=== PATIENT | female | born 1960 | race Hispanic/Latino ===

== ENCOUNTER 2016-11-03 08:36 | Emergency (ER) | payer MEDICAID ==
[2016-11-03] MEDS ORDERED: Sodium Chloride 0.9% 1,000 ML IV ONE ×2 (08:56→12:24)
[2016-11-03 09:10] VITALS: O2SAT 99
--- NOTE | 2016-11-03 09:25 | C.PDOC ---
History Of Present Illness 56-year-old female, presents to the emergency department with complaints of abdominal pain. Patient states she has been experiencing right-sided abdominal pain, that is associated with nausea and non-bilious/non-bloody vomiting x3 days. Pain is intermittent in nature, and non-radiating. Yesterday, patient developed non-bloody diarrhea and a subjective fever, resulting in her coming to the ED for evaluation. Patient reports history of Hepatitis C for which she took 3 month treatment of ribavarin and has to follow up with GI for results. Time Seen by Provider: 11/03/16 08:51 Chief Complaint (Nursing): GI Problem History Per: Patient History/Exam Limitations: no limitations Onset/Duration Of Symptoms: Days (3) Current Symptoms Are (Timing): Still Present Severity: Moderate Past Medical History Reviewed: Historical Data, Nursing Documentation, Vital Signs Vital Signs: Last Vital Signs Temp 98.9 F 11/03/16 12:50 Pulse 83 11/03/16 12:50 Resp 18 11/03/16 12:50 BP 152/89 H 11/03/16 12:50 Pulse Ox 99 11/03/16 13:29 - Medical History PMH: [place]'s Disease, Hepatitis (C), HTN, Rheumatoid Arthritis Family History: States: No Known Family Hx - Social History Hx Alcohol Use: Yes Hx Substance Use: No - Immunization History Hx Tetanus Toxoid Vaccination: No Hx Influenza Vaccination: No Review Of Systems Except As Marked, All Systems Reviewed And Found Negative. Constitutional: Positive for: Fever. Negative for: Chills Cardiovascular: Negative for: Chest Pain Respiratory: Negative for: Shortness of Breath Gastrointestinal: Positive for: Nausea, Vomiting, Abdominal Pain, Diarrhea Genitourinary: Negative for: Dysuria, Vaginal Discharge, Vaginal Bleeding Musculoskeletal: Negative for: Back Pain Neurological: Negative for: Weakness, Numbness, Headache, Dizziness Physical Exam - Physical Exam Appears: Non-toxic, No Acute Distress (Uncomfortable) Skin: Warm, Dry, No Rash Head: Atraumatic, Normacephalic Eye(s): bilateral: Normal Inspection Nose: Normal Oral Mucosa: Moist Lips: Normal Appearing Neck: Normal ROM Chest: Symmetrical Cardiovascular: Rhythm Regular, No Murmur Respiratory: Normal Breath Sounds, No Accessory Muscle Use Gastrointestinal/Abdominal: Soft, Tenderness (RUQ and RLQ), No Distention, No Guarding, No Hernia Back: Normal Inspection, No CVA Tenderness Extremity: Normal ROM Neurological/Psych: Oriented x3, Normal Speech ED Course And Treatment - Laboratory Results Result Diagrams: 11/03/16 09:25 11/03/16 09:25 Lab Interpretation: Abnormal O2 Sat by Pulse Oximetry: 99 Pulse Ox Interpretation: Normal - CT Scan/US A/P Other Rad Studies (CT/US): Read By Radiologist (DR Márquez), Radiology Report Reviewed CT/US Interpretation: DR. Márquez, Christy Nguyen MD. Approver2 : Report Date : 12:31:57. My Comment : . PROCEDURE: CT Abdomen and Pelvis with contrast. HISTORY: RLQ abd pain. COMPARISON: None available. TECHNIQUE: Contrast dose: 100 mL Omnipaque 350. Radiation dose: Total exam DLP = 545.48 mGy-cm. This CT exam was performed using one or more of the following dose reduction techniques: Automated exposure control, adjustment of the mA and/or kV according to patient size, and/or use of iterative reconstruction technique. FINDINGS: LOWER THORAX: No visible consolidation, pleural effusion, or pneumothorax. Tiny hiatal hernia/distal esophageal wall thickening. LIVER: Mild nodular hepatic contour. Hypoattenuation of the liver compatible with hepatic steatosis. GALLBLADDER AND BILE DUCTS: Unremarkable. PANCREAS: Unremarkable. SPLEEN: Splenomegaly. ADRENALS: Unremarkable. KIDNEYS AND URETERS: The kidneys enhance symmetrically. No hydronephrosis or obstructing calculus identified. VASCULATURE: Evidence of splenorenal shunt. No aortic aneurysm. BOWEL: Stomach is nondistended. Lack of oral contrast limits evaluation for bowel pathology. Bowel loops appear within normal limits of caliber without evidence of obstruction. APPENDIX: The appendix appears within normal limits of caliber. No secondary signs of acute appendicitis. PERITONEUM: No significant free fluid. No definite free air. LYMPH NODES: No bulky adenopathy identified. BLADDER: Under distention of the urinary bladder appears otherwise grossly unremarkable. REPRODUCTIVE: The uterus is present. BONES: No acute osseous abnormality is detected. OTHER FINDINGS: None. IMPRESSION: Hepatic steatosis. Nodular hepatic contour consistent with cirrhosis. Splenomegaly. Evidence of splenorenal shunt. Correlate clinically for portal venous hypertension. The appendix appears within normal limits of caliber without secondary signs of acute appendicitis. Additional incidental findings as above. Medical Decision Making Medical Decision Making: Impression 56y/o F c.o abdominal pain Plan: * CT Abd/Pel * CMP, Lipase * CBC * Pepcid, IVF, Toradol, Zofran * Urinalysis * Reassess and Disposition Progress: [facility] reviewed patient has multiple Rx of Ativan most recent 09/2016. Labs show mild leukocytosis with no bands or shift, CMP shows slight hypokalemia and elevated LFT and glucose. Patient complained of bodyaches and headache, Tylenol was ordered. 1235 CT reviewed showing no acute appendicitis or surgical pathology. Findings consistent with hepatitis and liver cirrhosis. 1245 Patient reevaluated and reports still feeling nausea and pain mildly improved. Of note patient has history of narcotic abuse and had refused narcotics initially. Patient had tolerated devin barry soda in ED. Abdomen remains soft without guarding or rebound. Vital signs are stable. Patient is stable for discharge and will be given Rx for Zofran. Recommend oral fluids for hydration and clear liquids with progression as tolerated. Disposition Counseled Patient/Family Regarding: Need For Followup, Rx Given - Disposition Referrals: [facility] [Outside] [facility] [Outside] Disposition: HOME/ ROUTINE Disposition Time: 13:26 Condition: STABLE Additional Instructions: Your Labs show chronic liver disease. CT abdomen consistent with liver disease. Drink fluids to prevent dehydration. Take Zofran as prescribed for nausea/ vomiting and Tramadol for any pain. Try low-fat diet with increase in fluids such as sport drink, gelatin. Try soup, rice, bread, crackers, cereal, and bananas to help with diarrhea. Avoid high sugar foods or drinks (soda and juice) , fatty foods Prescriptions: Ondansetron ODT [Zofran ODT] 1 odt PO BID PRN #10 odt PRN Reason: Nausea/Vomiting traMADol [Ultram] 50 mg PO Q8 #14 tab Instructions: Gastroenteritis (DC) - POA Present On Arrival: None - Clinical Impression Clinical Impression: Liver disease, Gastroenteritis - Scribe Statement The provider has reviewed the documentation as recorded by the Kirstyibnico Maritnez All medical record entries made by the Kirstyibnico were at my direction and personally dictated by me. I have reviewed the chart and agree that the record accurately reflects my personal performance of the history, physical exam, medical decision making, and the department course for this patient. I have also personally directed, reviewed, and agree with the discharge instructions and disposition.
[2016-11-03 09:32] LABS: BASO # 0.1 K/uL (0.0-0.2); BASO % 0.9 % (0.0-2.0); HEMATOCRIT 49.9 % (34.0-47.0); LYMPH # 0.7 K/uL (1.0-4.3); LYMPH % 6.1 % (20.0-40.0); MEAN CELL VOLUME 91.3 fL (81.0-99.0); MEAN CORPUSCULAR HEMOGLOBIN 30.3 pg (27.0-31.0); MEAN CORPUSCULAR HGB CONC 33.2 g/dL (33.0-37.0); MEAN PLATELET VOLUME 9.2 fL (7.2-11.7); MONO # 0.3 K/uL (0.0-0.8); MONO % 2.4 % (0.0-10.0); NRBC % 0.1 % (0.0-2.0); PLATELET COUNT 169 K/uL (130-400); RED CELL DISTRIBUTION WIDTH 13.6 % (11.5-14.5); WHITE BLOOD COUNT 11.6 K/uL (4.8-10.8)
[2016-11-03 10:04] LABS: CHLORIDE 97 mmol/L (98-107); POTASSIUM 3.4 mmol/L (3.6-5.2); SODIUM 138 mmol/L (132-148)
[2016-11-03 10:06] LABS: AST/SGOT 142 U/L (14-36); BILIRUBIN,TOTAL 1.6 mg/dL (0.2-1.3); CARBON DIOXIDE 22 mmol/L (22-30); GFR AFRICAN-AMERICAN > 60; NEUTROPHIL 94 % (50-75); REACTIVE LYMPHOCYTES 1 % (0-0); TOTAL CELLS COUNTED 100
[2016-11-03 10:07] LABS: ALB/GLOB RATIO 1.1 (1.0-2.1); ALKALINE PHOSPHATASE 204 U/L (38-126); ALT/SGPT 194 U/L (9-52); BLOOD UREA NITROGEN 25 mg/dL (7-17); CALCIUM 10.6 mg/dl (8.6-10.4); GLUCOSE,RANDOM 275 mg/dL (65-105)
[2016-11-03 10:29] LABS: RBC URINE 7 /hpf (0-3); URINE BACTERIA RARE (<OCC); URINE BILIRUBIN NEGATIVE (NEGATIVE); URINE BLOOD 2+ (NEGATIVE); URINE COLOR Yellow (YELLOW); URINE GLUCOSE (UA) 1+ mg/dL (Normal); URINE HYALINE CAST 0-2 /lpf (0-2); URINE KETONE NEGATIVE (NEGATIVE); URINE LEUKOCYTE ESTERASE NEG Leu/uL (Negative); URINE PROTEIN 1+ mg/dL (NEGATIVE); URINE UROBILINOGEN NORMAL mg/dL (0.2-1.0); WBC URINE 3 /hpf (0-5)
[2016-11-03] MEDS ORDERED: Iohexol 350mg/ml 100 ML ONE (11:54)
--- NOTE | 2016-11-03 12:34 | CT ---
PROCEDURE: CT Abdomen and Pelvis with contrast HISTORY: RLQ abd pain COMPARISON: None available. TECHNIQUE: Contrast dose: 100 mL Omnipaque 350 Radiation dose: Total exam DLP = 545.48 mGy-cm. This CT exam was performed using one or more of the following dose reduction techniques: Automated exposure control, adjustment of the mA and/or kV according to patient size, and/or use of iterative reconstruction technique. FINDINGS: LOWER THORAX: No visible consolidation, pleural effusion, or pneumothorax. Tiny hiatal hernia/distal esophageal wall thickening. LIVER: Mild nodular hepatic contour. Hypoattenuation of the liver compatible with hepatic steatosis. GALLBLADDER AND BILE DUCTS: Unremarkable. PANCREAS: Unremarkable. SPLEEN: Splenomegaly. ADRENALS: Unremarkable. KIDNEYS AND URETERS: The kidneys enhance symmetrically. No hydronephrosis or obstructing calculus identified. VASCULATURE: Evidence of splenorenal shunt. No aortic aneurysm. BOWEL: Stomach is nondistended. Lack of oral contrast limits evaluation for bowel pathology. Bowel loops appear within normal limits of caliber without evidence of obstruction. APPENDIX: The appendix appears within normal limits of caliber. No secondary signs of acute appendicitis. PERITONEUM: No significant free fluid. No definite free air. LYMPH NODES: No bulky adenopathy identified. BLADDER: Under distention of the urinary bladder appears otherwise grossly unremarkable. REPRODUCTIVE: The uterus is present. BONES: No acute osseous abnormality is detected. OTHER FINDINGS: None. IMPRESSION: Hepatic steatosis. Nodular hepatic contour consistent with cirrhosis. Splenomegaly. Evidence of splenorenal shunt. Correlate clinically for portal venous hypertension. The appendix appears within normal limits of caliber without secondary signs of acute appendicitis. Additional incidental findings as above.
[2016-11-03] MEDS ORDERED: Sodium Chloride 0.9% 1,000 ML ONE (12:42)
[2016-11-03 12:54] VITALS: BP 152/89; PULSE 83; RESP 18; TEMP 98.9
== END 2016-11-03 13:42 | disposition home or self-care (01) ==
LOC: C.ER 08:36
DX: K76.9 Liver disease, unspecified (principal); K52.9 Noninfective gastroenteritis and colitis, unspecified
CPT/HCPCS: 74177; 80053; 81001; 83690; 85025; 96361; 96365; 96375; 99285; J1885; J2405; J2765; J7040; Q9967

== ENCOUNTER 2017-03-31 23:39 | Emergency (ER) | payer MEDICAID ==
[2017-03-31 23:53] VITALS: TEMP 98; O2SAT 98
--- NOTE | 2017-04-01 00:05 | C.PDOC ---
- HPI Time Seen by Provider: 04/01/17 00:04 Chief Complaint (Nursing): Trauma Past Medical History Vital Signs: Last Vital Signs Temp 98 F 03/31/17 23:47 Pulse 88 03/31/17 23:47 Resp 15 03/31/17 23:47 BP 136/86 03/31/17 23:47 Pulse Ox 98 03/31/17 23:47 - Medical History PMH: [place]'s Disease, Hepatitis (C), HTN, Rheumatoid Arthritis - Social History Hx Alcohol Use: Yes Hx Substance Use: No - Immunization History Hx Tetanus Toxoid Vaccination: No Hx Influenza Vaccination: No ED Course And Treatment O2 Sat by Pulse Oximetry: 98 Disposition Counseled Patient/Family Regarding: Studies Performed, Diagnosis - Disposition Disposition Time: 00:05
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
--- NOTE | 2017-04-01 01:00 | CT ---
EXAM: CT Orbits Without Intravenous Contrast EXAM DATE/TIME: Exam ordered 04/01/2017 12:17 AM CLINICAL HISTORY: 56 years old, female; Injury or trauma; Fall; Initial encounter; Abrasion; Forehead and nose and orbit/periorbital and lip/oral cavity; Right; Both upper and lower TECHNIQUE: Axial computed tomography images of the orbits without intravenous contrast. All CT scans at this facility use one or more dose reduction techniques, viz.: automated exposure control; ma/kV adjustment per patient size (including targeted exams where dose is matched to indication; i.e. head); or iterative reconstruction technique. Coronal and sagittal reformatted images were created and reviewed. COMPARISON: No relevant prior studies available. FINDINGS: Orbits: Unremarkable. Sinuses: Unremarkable. No air-fluid levels. Bones/joints: Mild degenerative changes are noted between the anterior arch of C1 and the dens. No fracture is seen. Soft tissues: Mild soft tissue swelling is noted over the frontal bone just above the nasal bridge. Parotid: A 4 mm stone is noted in the left parotid duct. Dental: there are multiple missing teeth. IMPRESSION: 1. Mild soft tissue swelling noted over the frontal bone above the nasal bridge. No fracture.. 2. A 4 mm stone is noted in the left parotid duct. There is no ductal dilatation or inflammation of the ipsilateral parotid.
--- NOTE | 2017-04-01 01:04 | CT ---
EXAM: CT Head Without Intravenous Contrast EXAM DATE/TIME: Exam ordered 04/01/2017 12:17 AM CLINICAL HISTORY: 56 years old, female; Injury or trauma; Fall; Initial encounter; Blunt trauma (contusions or hematomas); Consciousness not specified TECHNIQUE: Axial computed tomography images of the head/brain without intravenous contrast. All CT scans at this facility use one or more dose reduction techniques, viz.: automated exposure control; ma/kV adjustment per patient size (including targeted exams where dose is matched to indication; i.e. head); or iterative reconstruction technique. Coronal and sagittal reformatted images were created and reviewed. COMPARISON: No relevant prior studies available. FINDINGS: Brain: Unremarkable. No hemorrhage. No significant white matter disease. No edema. Ventricles: Unremarkable. No ventriculomegaly. Bones/joints: Unremarkable. No acute fracture. Soft tissues: Minimal soft tissue swelling is noted over the right frontal bone above the nasal bridge. Sinuses: Unremarkable as visualized. No acute sinusitis. Mastoid air cells: Unremarkable as visualized. No mastoid effusion. IMPRESSION: Minimal soft tissue swelling is noted over the right frontal bone above the nasal bridge. No fracture. No intracranial abnormalities.
[2017-04-01 01:51] VITALS: BP 145/87; PULSE 86; RESP 16
== END 2017-04-01 01:55 | disposition home or self-care (01) ==
LOC: C.ER 23:39
DX: S00.83XA Contusion of other part of head, initial encounter (principal); W10.9XXA Fall (on) (from) unspecified stairs and steps, initial encounter; Y92.009 Unspecified place in unspecified non-institutional (private) residence as the place of occurrence of the external cause